=== PATIENT | female | born 1950 | race Caucasian/White ===

== ENCOUNTER → 2021-02-26 | Outpatient (CLI) | payer MEDICARE, OTHER ==
[2021-02-26 08:27] VITALS: BP 146/90; RESP 18; TEMP 97.8
--- NOTE | 2021-02-26 08:45 | P.PAINCN ---
History of Present Illness - Reason for Consult Consult date: 02/26/21 - History of Present Illness Since 70 years old female with a chronic history of severe neck pain and left shoulder pain with rotation to the left upper extremity associated with numbness and tingling sensation, thought that after she fell in November 2020, pain is constant and increased with any upper extremity movement, denies any weakness, she denies any fever or night sweats she denies any change in bowel movement or urination, she tried physical therapy without any benefit, he continued to do daily home exercise, she tried Tylenol and ibuprofen without any significant improvement of her pain Past Medical History Past Medical History: Diabetes Mellitus, Hyperlipidemia, Thyroid Disorder History of Any Multi-Drug Resistant Organisms: None Reported Past Surgical History: Joint Replacement, Orthopedic Surgery Additional Past Surgical History / Comment(s): Bilateral carpal tunnel surgery, bilateral knee replacements, right rotator cuff repair. "Recent fall, anel left shoulder, now has constant tingling in left arm". " said it's orginating from neck and back." Past Anesthesia/Blood Transfusion Reactions: No Reported Reaction Smoking Status: Former smoker - Past Family History Mother Family Medical History: Cancer Medications and Allergies Home Medications Medication Instructions Recorded Confirmed Type Calcium/Magnesium/Zinc 1 each PO DAILY 02/24/21 02/24/21 History [Ewbfeyv-Qqmjzsktn-Dicu Tablet] Cholecalciferol (Vitamin D3) 250 mcg PO DAILY 02/24/21 02/24/21 History [Vitamin D3 (125 MCG = 5,000 IU)] Cyclobenzaprine [Flexeril] 10 mg PO HS 02/24/21 02/24/21 History Levothyroxine Sodium 112 mcg PO DAILY 02/24/21 02/24/21 History Losartan Potassium 50 mg PO DAILY 02/24/21 02/24/21 History Milk Thistle 150 mg PO DAILY 02/24/21 02/24/21 History Repaglinide 0.5 mg PO DAILY 02/24/21 02/24/21 History Rosuvastatin Calcium 20 mg PO DAILY 02/24/21 02/24/21 History Vitamin E(Unknown Dose) 1 tab PO DAILY 02/24/21 02/24/21 History metFORMIN HCL [Glucophage] 500 mg PO QAM 02/24/21 02/24/21 History Allergies Allergy/AdvReac Type Severity Reaction Status Date / Time No Known Allergies Allergy Verified 02/24/21 13:36 Physical Exam Vitals: Vital Signs Temp Resp BP Pulse Ox 02/26/21 08:21 97.8 F 18 146/90 97 Physical Examinations : -Constitutiona : Cooperative , not in acute distress . -HEENT : nech : supple , no Lymphadenopathy , normal thyroid size . : eyes : no ptosis , no icterus, no photophobia . - neurologic : Cranial nerve II to XII intact , no focal neurological deffecit . -psychatric : alert , oriented X 3 , appropriate affect , intact judgment and insight . -Lymphatic : no Lymphadenopathy . - musculoskeltal : Cervical Spine motor stregnth in the deltoid and biceps, normal right side , normal Left side motor stregnth biceps and the wrist extensors normal right side ,normal left side . motor stregnth in the triceps muscle . normal Right side , normal Left side deep tendon reflexes normal at the biceps , normal at Brachioradialis , normal at triceps. cervical facet loading test: Positive left side Spurling test= positive left. Neck distraction test= positive left. Ana Laura sign= positive left . Abduction and lateral rotation of the left shoulder associated with pain Lumber spine moter stegnth lower extremities ,thigh and legs 5/5 Right side , 5/5 Left side Results Comments: MRI of the cervical spine= C2 3 facet hypertrophy at C3 4 left foraminal stenosis and facet hypertrophy at C4 5 Central disc complex and bilateral foraminal stenosis and facet joint hypertrophy at C5 6 bilateral foraminal stenosis Assessment and Plan Plan: Assessment and plan=1-cervical radiculopathy. 2-cervical foraminal stenosis. 3-cervical spondylosis with cervical facet arthropathy. 4-left shoulder pain. She could benefit from cervical epidural steroid injection at C7-T1 (left paramedian approach ). Time with Patient: Greater than 30 PQRS Measure Charge Sheet Measure #130: Documentation of Current Meds in Medical Chart: Patient's medications documented in chart Measure #226: Tobacco Use: Screen & Cessation Intervention: Pt not a tobacco user Measure #111: Pneumonia Vaccination: Pneumococcal vaccine NOT administered or previously given Measure #47: Advance Care Plan: Advance care planning discussed & documented, pt chose/unable to give Measure #412: Opioid Treatment Agreement: No documentation of signed opioid treatment agreement Measure #408: Opioid Therapy Follow-up Evaluation: Patient had NO f/u eval minimum every 3 months during opioid therapy Measure #317: Preventitive Care & Scrn High Bld Press & F/U: Pre-hypertensive or hypertensive BP documented, pt will f/u with PCP Measure #128: Body Mass Index (BMI) Screening & Follow-up: BMI documented ABOVE normal parameters - f/u documented Measure #131: Pain Assessment & Follow-up: Pain positive & plan documented, Follow-up scheduled Measure #431: Unhealthy Alcohol Use Preventative Care & Scrn: Patient not identified as an unhealthy alcohol user PQRS Narrative: Blood Pressure 146/90 Pain Intensity [Left Arm] 5 Scale Used Numeric (1 - 10) Hx Alcohol Use (MH) No Home Medications: Ambulatory Orders Calcium/Magnesium/Zinc [Cikbdck-Qkddgqwca-Waaa Tablet] 1 each PO DAILY 02/24/21 Cholecalciferol (Vitamin D3) [Vitamin D3 (125 MCG = 5,000 IU)] 250 mcg PO DAILY 02/24/21 Cyclobenzaprine [Flexeril] 10 mg PO HS 02/24/21 Levothyroxine Sodium 112 mcg PO DAILY 02/24/21 Losartan Potassium 50 mg PO DAILY 02/24/21 Milk Thistle 150 mg PO DAILY 02/24/21 Repaglinide 0.5 mg PO DAILY 02/24/21 Rosuvastatin Calcium 20 mg PO DAILY 02/24/21 Vitamin E(Unknown Dose) 1 tab PO DAILY 02/24/21 metFORMIN HCL [Glucophage] 500 mg PO QAM 02/24/21
== END | disposition home or self-care (01) ==
LOC: PNWHC3 08:10
PROVIDERS: ATTEND Specialist
DX: M48.02 Spinal stenosis, cervical region (principal); M47.22 Other spondylosis with radiculopathy, cervical region; M46.92 Unspecified inflammatory spondylopathy, cervical region; M50.30 Other cervical disc degeneration, unspecified cervical region; M25.512 Pain in left shoulder
CPT/HCPCS: 99202

== ENCOUNTER 2021-04-03 06:57 | Day surgery (SDC) | payer MEDICARE, OTHER ==
[2021-04-02 08:49] VITALS: BMI 46.7
[~2021-04-03 06:57] MED LIST: LACTATED RINGERS 1,000 ML IV SCH
[2021-04-03 07:27] VITALS: TEMP 97.6
[2021-04-03 07:35] LABS: Glucose,Whole Blood 116 mg/dL (75-99)
[2021-04-03] MEDS ORDERED: LIDOCAINE 1% (10MG/ML) FOR IV START INTRADERMA ONE (07:35)
[2021-04-03] MEDS ORDERED: MIDAZOLAM 2 MG/2 ML VIAL ONE (08:15)
[2021-04-03] MEDS ORDERED: fentaNYL (PF) 50 MCG/ML 2 ML AMP ONE (08:15)
[2021-04-03] MEDS ORDERED: DEXAMETHASONE SOD PHOSPHATE 10 MG/ML 1 ML VIAL ONE (08:15)
[2021-04-03] MEDS ORDERED: IOPAMIDOL M200 10 ML VIAL ONE (08:15)
--- NOTE | 2021-04-03 08:29 | P.PCN ---
Date of Procedure: 04/03/21 Surgeon: Manish Erwin Pathology: none sent Condition: stable Disposition: PACU Description of Procedure: PROCEDURE 1. Cervical epidural steroid injection under fluoroscopic guidance, C7-T1 left paramedian approach. 2. Cervical epidurogram. : PREOPERATIVE DIAGNOSIS: Cervical radiculopathy, cervical spondylosis without myelopathy POSTOPERATIVE DIAGNOSIS: : Same as above ANESTHESIA: Local anesthesia with 1% lidocaine and IV moderate conscious sedation with Versed and Fentanyl . EBL 0 PROCEDURE INDICATION: The patient with neck pain and radiculopathy unresponsive to conservative treatment consents for procedure. PROCEDURE DESCRIPTION / TECHNIQUE: The patient was seen and identified in the preoperative area. Risks, benefits, complications, including but not limited to infections ,bleeding , allergic reactions to the medications ,and not complete pain relief, and alternatives were discussed with the patient, the patient agreed to proceed with the procedure and signed the consent. Patient was taken to the OR and time out was completed. The patient was placed in the prone position on the procedure table. A pillow was placed under the patients chest to increase the flexion of the cervical spine . The cervical area was prepped and draped in the usual sterile fashion. Vital signs were closely monitored during the procedure. Conscious sedation was used during the procedure to decrease patients anxiety. Using anterior-posterior fluoroscopy, the C7-T1 interlaminar space was identified and the skin over this site was marked and then infiltrated with 1% lidocaine subcutaneously. Subsequently, a 20-gauge 3-1/2-inch Tuohy epidural needle was inserted and advanced toward the epidural space by means of loss of resistance to air technique and guided by AP and lateral fluoroscopy. The needle tip contacted the lamina of T1 vertebra first, then it was walked off bone and into the epidural space using the loss of to air and fluoroscopic guidance to identify the epidural space. The correct needle position in the epidural space was verified with the injection of 1 mL of the water soluble contrast dye Isovue and observing an excellent epidurogram with the epidural spread of the dye, after negative aspiration for blood and CSF and in the absence of paresthesias. Again after negative aspiration, a 2 ml mixture containing 10 mg of Decadron and 1 ml of preservative free Normal Saline solution was injected and a washout of epidurogram was seen. Needle was withdrawn intact, skin was cleansed, and bandages were applied. A copy of the needle placement picture was saved to the fluoroscopy machine.
[2021-04-03] MEDS ORDERED: IV FLUID CONTINUATION 600 ML IV ONE (08:38)
[2021-04-03 09:09] VITALS: BP 125/76; PULSE 78; RESP 20
--- NOTE | 2021-04-03 10:00 | FL ---
EXAMINATION TYPE: FL guided pain mgmt statistic DATE OF EXAM: 04/03/2021 CLINICAL HISTORY: Neck pain. TECHNIQUE: Fluoroscopy. COMPARISON: None. FINDINGS: Fluoroscopic guidance was provided during pain relief procedure performed by Dr. Erwin . A total of 5 seconds of fluoroscopic time was utilized during the procedure and 1 spot images are a cquired. Single image acquired shows needle localization at the cervical thoracic junction. IMPRESSION: As Above.
== END 2021-04-03 09:10 | disposition home or self-care (01) ==
LOC: ORPAIN 06:57
PROVIDERS: ATTEND Anesthesiology
DX: M47.22 Other spondylosis with radiculopathy, cervical region (principal); E11.9 Type 2 diabetes mellitus without complications; E66.9 Obesity, unspecified; Z68.42 Body mass index [BMI] 45.0-49.9, adult
CPT/HCPCS: 62321; J2250; J1100; J3010; Q9966; 99152

== ENCOUNTER → 2021-05-28 | Outpatient (CLI) | payer MEDICARE, OTHER ==
[2021-05-28 10:56] LABS: Basophils % (A) 1 %; Eosinophils # (A) 0.1 k/uL (0-0.7); Eosinophils % (A) 2 %; HCT 38.3 % (34.0-46.0); HGB 13.3 gm/dL (11.4-16.0); Lymphocytes # (A) 2.1 k/uL (1.0-4.8); Lymphocytes % (A) 42 %; MCH 33.1 pg (25.0-35.0); MCHC 34.8 g/dL (31.0-37.0); Mean Platelet Volume 8.6; Monocytes # (A) 0.4 k/uL (0-1.0); Monocytes % (A) 7 %; Neutrophils # (A) 2.3 k/uL (1.3-7.7); Neutrophils % (A) 46 %; Platelet Count 127 k/uL (150-450); RBC 4.03 m/uL (3.80-5.40); RDW 12.9 % (11.5-15.5)
[2021-05-28 11:11] LABS: Partial Thromboplastin Time 23.3 sec (22.0-30.0); Prothrombin Time 10.7 sec (9.0-12.0)
[2021-05-28 11:16] LABS: Calcium 9.4 mg/dL (8.4-10.2); Potassium 4.2 mmol/L (3.5-5.1)
[2021-05-28 11:18] LABS: Appearance,Urine Clear (Clear); Bilirubin,Urine Negative (Negative); Blood,Urine Negative (Negative); Color,Urine Yellow; Glucose,Urine (UA) Negative (Negative); Ketones,Urine Negative (Negative); Leukocyte Esterase,Urine Moderate (Negative); Nitrite,Urine Negative (Negative); PH, Urine 5.5 (5.0-8.0); Protein,Urine Negative (Negative); RBC,Urine <1 /hpf (0-5); Specific Gravity,Urine 1.016 (1.001-1.035); Squamous Epithelial Cell,Urine <1 /hpf (0-4); Urobilinogen,Urine <2.0 mg/dL (<2.0); WBC,Urine 3 /hpf (0-5)
== END | disposition home or self-care (01) ==
LOC: LABPAT 09:15
PROVIDERS: ATTEND Orthopaedic Surgery Orthopaedic Surgery of the Spine
DX: Z01.812 Encounter for preprocedural laboratory examination (principal); M48.02 Spinal stenosis, cervical region
CPT/HCPCS: 36415; 80048; 81001; 85025; 85610; 85730

== ENCOUNTER → 2021-06-03 | Outpatient (CLI) | payer MEDICARE, OTHER ==
[2021-06-03 10:27] LABS: Appearance,Urine Clear (Clear); Bacteria,Urine Rare /hpf; Bilirubin,Urine Negative (Negative); Blood,Urine Negative (Negative); Color,Urine Yellow; Glucose,Urine (UA) Negative (Negative); Hyaline Casts,Urine 4 /lpf (0-2); Ketones,Urine Negative (Negative); Leukocyte Esterase,Urine Moderate (Negative); Mucus,Urine Rare /hpf; Nitrite,Urine Negative (Negative); PH, Urine 5.5 (5.0-8.0); Protein,Urine Negative (Negative); RBC,Urine 1 /hpf (0-5); Specific Gravity,Urine 1.014 (1.001-1.035); Squamous Epithelial Cell,Urine 1 /hpf (0-4); Urobilinogen,Urine <2.0 mg/dL (<2.0); WBC,Urine 6 /hpf (0-5)
== END | disposition home or self-care (01) ==
LOC: LABPAT 08:34
PROVIDERS: ATTEND Orthopaedic Surgery Orthopaedic Surgery of the Spine
DX: Z01.812 Encounter for preprocedural laboratory examination (principal); M48.02 Spinal stenosis, cervical region
CPT/HCPCS: 81001

== ENCOUNTER 2021-06-04 06:09 | Day surgery (SDC) | payer MEDICARE, OTHER ==
[2021-06-03 09:41] VITALS: BMI 48.7
[~2021-06-04 06:09] MED LIST changes: +DEXAMETHASONE SOD PHOSPHATE 4 MG/ML 1 ML VIAL IV ONE; +LIDOCAINE 1% (10MG/ML) FOR IV START INTRADERMA PRN; +MIDAZOLAM 2 MG/2 ML VIAL IV PRN; +ONDANSETRON 4 MG/2 ML VIAL IVP ONE; +ceFAZolin 3 GM in SODIUM CHLORIDE 0.9% 100 ML IVPB PRN
[2021-06-04 07:19] LABS: Glucose,Whole Blood 132 mg/dL (75-99)
[2021-06-04] MEDS ORDERED: SUCCINYLCHOLINE CHLORIDE VIAL 200 MG/10 ML VIAL IV ONE (07:23)
[2021-06-04] MEDS ORDERED: HYDROmorphone (PF) 1 MG/ML ONE (07:23)
[2021-06-04] MEDS ORDERED: LIDOCAINE 1% INJ 10MG/ML (20 ML MDV) ONE (07:23)
[2021-06-04] MEDS ORDERED: PHENYLEPHRINE-0.9% NACL SYG 1,000 MCG/10 ML SYRINGE ONE (07:23)
[2021-06-04] MEDS ORDERED: PROPOFOL 10 MG/ML 20 ML VIAL IV ONE (07:23)
[2021-06-04] MEDS ORDERED: ALBUTEROL HFA INHALER INHALATION ONE (07:23)
[2021-06-04] MEDS ORDERED: MIDAZOLAM 2 MG/2 ML VIAL ONE (07:23)
[2021-06-04] MEDS ORDERED: .fentaNYL (PF) 50 MCG/ML 2 ML AMP ONE (07:23)
[2021-06-04] MEDS ORDERED: ceFAZolin 1,000 MG in SODIUM CHLORIDE 0.9% 1,000 ML IRRIGATION ONE (07:32)
[2021-06-04] MEDS ORDERED: BUPIVACAIN-EPI 0.25%-1:200,000 30 ML VIAL SQ ONE ×3 (07:57→08:03)
[2021-06-04] MEDS ORDERED: GELATIN SPONGE,ABSORB (LARGE) 1 EACH SPONGE MISCELLANE ONE (07:57)
[2021-06-04] MEDS ORDERED: THROMBIN (BOVINE) 5,000 UNIT VIAL MISCELLANE ONE (07:58)
[2021-06-04] MEDS ORDERED: LACTATED RINGERS 1,000 ML IV ONE (09:00)
[2021-06-04] MEDS ORDERED: ONDANSETRON 4 MG/2 ML VIAL IVP PRN (09:44)
[2021-06-04] MEDS ORDERED: BENZOCAINE/MENTHOL LOZENG 1 EACH LOZENGE MUCOUS MEM PRN (09:44)
[2021-06-04] MEDS ORDERED: MAGNESIUM HYDROXIDE 2,400 MG/10 ML CUP PO PRN (09:44)
[2021-06-04] MEDS ORDERED: HYDROmorphone 0.5 MG/0.5 ML SYRINGE IVP PRN (09:44)
[2021-06-04] MEDS ORDERED: CYCLOBENZAPRINE 10 MG TAB PO PRN (09:44)
[2021-06-04] MEDS ORDERED: ACETAMINOPHEN TAB 325 MG TAB PO PRN (09:44)
[2021-06-04] MEDS ORDERED: HYDROcodone/APAP 5-325MG 1 EACH TAB PO PRN (09:44)
[2021-06-04] MEDS ORDERED: SODIUM CHLORIDE 0.9% 1,000 ML IV SCH (09:45)
--- NOTE | 2021-06-04 09:52 | P.OP ---
Date of Procedure: 06/04/21 Preoperative Diagnosis: Herniated nucleus pulposis C5 6 C6 7, degenerative disc disease C5 6 C6 7, cervical stenosis C5 6 C6 7, neck pain, upper extremity radiculopathy, upper extremity weakness Postoperative Diagnosis: Same Anesthesia: GETA Pathology: none sent Condition: stable Disposition: PACU Description of Procedure: BRIEF OPERATIVE NOTE Preoperative Diagnosis:Herniated nucleus pulposis C5 6 C6 7, degenerative disc disease C5 6 C6 7, cervical stenosis C5 6 C6 7, neck pain, upper extremity radiculopathy, upper extremity weakness Postoperative Diagnosis:Herniated nucleus pulposis C5 6 C6 7, degenerative disc disease C5 6 C6 7, cervical stenosis C5 6 C6 7, neck pain, upper extremity radiculopathy, upper extremity weakness Procedure: Anterior cervical decompression with discectomy and fusion C5 6 C6 7 Placement of interbody graft C5 6 C6 7 Application of anterior cervical plate C5 6 7 Surgeon: Dr. Garcia Telephone Operators Supervisor: Rachid Shafer is present throughout the entire the case persistence during positioning, dissection, exposure, visualization, and all crucial elements of the case as well as closure. Anesthesia: General anesthesia per Dr. Oakes Estimated blood loss: Approximately 50 mL Complications: None apparent Components implanted: K2M Causey anterior cervical plate system with a 38 mm plate and 6 screws with Vikos interbody allograft bone graft and 1 mL of DBX bone putty Disposition: To recovery room in good stable condition. OPERATIVE INDICATIONS The patient has had long-standing issues in their neck and upper extremities. She is having significant worsening over the past several months. She was found have disc herniation at C5 6 C6 7 which correlated well with her neck and her upper extremity symptoms. She was having continued pain at her upper extremities despite conservative care and was having worsening of her symptoms. The patient has been through conservative treatment. We discussed various treatment options including surgery, and the patient wishes to proceed with surgery We discussed the risk, patient's alternatives and benefits of surgery including but not limited to, risk of bleeding risk of infection, risk of need for further surgery, risk of decreased, loss of motion, muscle function, malunion nonunion, hardware failure, nerve damage, paralysis, heart attack, and . OPERATIVE SUMMARY After discussing all the risks, patient alternatives and benefits at length, the patient elected to proceed with surgical intervention, signed informed consent, and presented for their procedure. The patient was seen and examined in the preoperative holding area and the surgical site was marked. The patient was given antibiotics and brought to the operating room. The patient was positioned on the operating room table in a supine position being careful to pad any bony prominences and pressure points. The patient was sedated and intubated by anesthesia in standard fashion. Once the airway and C- spine were stabilized the patient's arms were padded and tucked at her side, with her shoulders gently taped. The head was placed in a donut pad with the neck in good neutral alignment and position. We were careful to maintain the patient's cervical spine and good neutral alignment and position throughout. The patient was prepped and draped in a normal standard fashion. An appropriate timeout and keystone protocol performed. We were able to proceed with the surgery. The local wound area was infiltrated with local anesthetic. An incision was made transversely approximately 2-1/2 cm over the appropriate levels at C6. Dissection was taken down subcutaneously to the level of the platysma which was split in line with its fibers. Dissection was taken with a carotid approach, with the trachea and esophagus medial and the carotid sheath laterally. We dissected down to the anterior surface of the vertebral bodies. The patient is obese and there was extra time during the dissection and the surgery due to her body habitus. Intraoperative x-ray was taken which showed a marker at the C4 5 level and I was able to definitively dissect down caudal to this to C5 6 and C6 7. With the appropriate level positively confirmed, we were able to proceed with discectomy at the appropriate levels, first at C6 7 and then at C5 6. All of the operative levels were exposed appropriately. The patient had all their twitches back, and there was no evidence of recurrent laryngeal issue. The wound was copiously irrigated and suctioned dry as had been done periodically throughout the case. The anterior osteophytes were removed. At the appropriate level/levels, versus C6 7 and then at C5 6 I established an annulotomy with an 11 blade scalpel. A discectomy was performed with a combination of pituitary rongeurs, curettes, a high-speed bur, and Kerrison rongeurs. The posterior longitudinal ligament was taken down as were any posterior osteophytes. This gave good central and bilateral foraminal decompression. There is no evidence of any dural tear or leak. There was severe disc degeneration at each of the levels with severe disc height loss. The endplates were prepared with a high-speed bur. With the endplates in good parallel position, I was able to size for the appropriate size interbody graft. The wound was irrigated and suctioned dry the graft was prepared and malleted into position. It had good alignment and position with the anterior surface flush with the anterior surface of the vertebral bodies. This was done similarly the appropriate levels first at C6 7 and then at C5 6. With the grafts intact, I was able to measure and contour and appropriate sized plate. The plate was positioned at the midline over the appropriate levels at C5 6 and 7. Screw holes were established with a hand drill and drill guide. Screws were placed in good alignment and position with excellent bony purchase. They were seated under the locking device. The construct was checked and found to be stable. Intraoperative x-ray was taken which showed good alignment and position of the implants at the appropriate levels. There was no evidence of any dural tear or leak. Good hemostasis was maintained. The wound was copiously irrigated and suctioned dry as had been done periodically throughout the case. The platysma was closed with absorbable suture. The subcutaneous tissue was closed. The subcuticular tissue was closed with absorbable suture. The wound was cleaned and dried and dressed appropriately. A soft cervical collar was placed appropriately. The patient was woken up by anesthesia, extubated, transferred back gently to their hospital bed and brought to the recovery room in good stable condition. The patient will be admitted to the hospital for appropriate postoperative care, medical management and monitoring. We will continue to follow them closely about the postoperative course.
--- NOTE | 2021-06-04 10:05 | XR ---
EXAMINATION TYPE: XR cervical spine 1V DATE OF EXAM: 06/04/2021 COMPARISON: 06/04/2021 and earlier exam HISTORY: Cervical fusion TECHNIQUE: Crosstable lateral cervical view FINDINGS: Endotracheal tube is present. There is anterior cervical fusion at C5. This extends lower a lthough body habitus prevents evaluation of this region. IMPRESSION: 1. Status post cervical fusion. Exam is limited
--- NOTE | 2021-06-04 10:06 | XR ---
EXAMINATION TYPE: XR cervical spine 1V DATE OF EXAM: 06/04/2021 COMPARISON: None HISTORY: Needle placement TECHNIQUE: Lateral cervical spine FINDINGS: There is a needle directed to the C4-C5 disc level. Endotracheal tube is evident. IMPRESSION: 1. Metallic device directed towards the C4-5 disc level.
[2021-06-04 10:08] VITALS: TEMP 97.3
[2021-06-04] MEDS: HYDROmorphone 0.5 MG/0.5 ML SYRINGE IVP PRN ×2 (10:25→10:41)
[2021-06-04] MEDS ORDERED: HYDROcodone/APAP 5-325MG 1 EACH TAB PO ONE (11:41)
[2021-06-04 12:27] VITALS: PULSE 99
[2021-06-04 13:00] VITALS: BP 143/91; RESP 16
[2021-06-04] MEDS ORDERED: ceFAZolin 3 GM in SODIUM CHLORIDE 0.9% 100 ML IVPB SCH (16:00)
[2021-06-04] MEDS ORDERED: CYCLOBENZAPRINE 10 MG TAB PO SCH (21:00)
[2021-06-04] MEDS ORDERED: NITROFURANTOIN MONOHYD/M-CRYST 100 MG CAP PO SCH (21:00)
[2021-06-05] MEDS ORDERED: LOSARTAN 50 MG TAB PO SCH (09:00)
[2021-06-05] MEDS ORDERED: SENNOSIDES-DOCUSATE SODIUM 1 EACH TAB PO SCH (09:00)
[2021-06-05] MEDS ORDERED: LEVOTHYROXINE 112 MCG TAB PO SCH (09:00)
[2021-06-05] MEDS ORDERED: REPAGLINIDE 0.5 MG PO SCH (09:00)
[2021-06-05] MEDS ORDERED: metFORMIN 500 MG TAB PO SCH (09:00)
[2021-06-05] MEDS ORDERED: NON FORMULARY DRUG (Cholecalciferol (Vitamin D3) [Vitamin D3 (125 Mcg = 5,000 Iu)] 125 MCG PO SCH (09:00)
[2021-06-05] MEDS ORDERED: NON FORMULARY DRUG (Calcium/Magnesium/Zinc [Calcium-Magnesium-Zinc Tablet] 1 EACH Tablet) PO SCH (09:00)
[2021-06-05] MEDS ORDERED: NON FORMULARY DRUG (Rosuvastatin Calcium [Rosuvastatin Calcium] 20 MG Tablet) PO SCH (09:00)
== END 2021-06-04 13:24 | disposition home or self-care (01) ==
LOC: OR 06:09
PROVIDERS: ATTEND Orthopaedic Surgery Orthopaedic Surgery of the Spine
DX: M50.122 Cervical disc disorder at C5-C6 level with radiculopathy (principal); E03.9 Hypothyroidism, unspecified; E78.5 Hyperlipidemia, unspecified; E11.9 Type 2 diabetes mellitus without complications; M48.02 Spinal stenosis, cervical region; M25.78 Osteophyte, vertebrae; M50.322 Other cervical disc degeneration at C5-C6 level; M50.323 Other cervical disc degeneration at C6-C7 level; M50.320 Other cervical disc degeneration, mid-cervical region, unspecified level; Z79.899 Other long term (current) drug therapy; Z79.84 Long term (current) use of oral hypoglycemic drugs
CPT/HCPCS: 87635; 72020; 22551; 22552 ×2; C1762 ×2; C1713; C1776; J2250; J0330; J1100; J0690 ×2; J2405; J2001; J3010; J1170 ×2; J2370; J2704; 86850; 86900; 86901

== ENCOUNTER 2022-01-07 06:56 | Day surgery (SDC) | payer MEDICARE, OTHER ==
[2022-01-02 16:02] VITALS: BMI 40.3
[~2022-01-07 06:56] MED LIST changes: -DEXAMETHASONE SOD PHOSPHATE 4 MG/ML 1 ML VIAL IV ONE; -LIDOCAINE 1% (10MG/ML) FOR IV START INTRADERMA PRN; -MIDAZOLAM 2 MG/2 ML VIAL IV PRN; -ONDANSETRON 4 MG/2 ML VIAL IVP ONE; -ceFAZolin 3 GM in SODIUM CHLORIDE 0.9% 100 ML IVPB PRN
[2022-01-07 07:33] VITALS: TEMP 96.7
[2022-01-07 07:35] LABS: Glucose,Whole Blood 126 mg/dL (70-110)
[2022-01-07] MEDS ORDERED: MIDAZOLAM 2 MG/2 ML VIAL ONE (07:35)
[2022-01-07] MEDS ORDERED: PROPOFOL 10 MG/ML 20 ML VIAL IV ONE (07:35)
[2022-01-07] MEDS ORDERED: fentaNYL (PF) 50 MCG/ML 2 ML AMP ONE (07:35)
--- NOTE | 2022-01-07 07:35 | P.GSHP ---
History of Present Illness H&P Date: 01/07/22 CHIEF COMPLAINT: Colon screen HISTORY OF PRESENT ILLNESS: The patient is a 71-year-old female who presents for colon screen. Lower endoscopy was offered for further evaluation and management. PAST MEDICAL HISTORY: Please see list. PAST SURGICAL HISTORY: Please see list. MEDICATIONS: Please see list. ALLERGIES: Please see list. SOCIAL HISTORY: No illicit drug use FAMILY HISTORY: No reports of Crohn disease or ulcerative colitis. REVIEW OF ORGAN SYSTEMS: CONSTITUTIONAL: No reports of fevers or chills. PHYSICAL EXAM: VITAL SIGNS: Stable GENERAL: Well-developed pleasant in no acute distress. HEENT: No scleral icterus. Extraocular movements grossly intact. Moist buccal mucosa. NECK: Supple without lymphadenopathy. CHEST: Unlabored respirations. Equal bilateral excursions. CARDIOVASCULAR: Regular rate and rhythm. Distal 2+ pulses. ABDOMEN: Soft, nontender, nondistended. MUSCULOSKELETAL: No clubbing, cyanosis, or edema. ASSESSMENT: 1. Colon screen. PLAN: 1. Recommend proceeding with a lower endoscopy Past Medical History Past Medical History: Diabetes Mellitus, Hyperlipidemia, Hypertension, Thyroid Disorder History of Any Multi-Drug Resistant Organisms: None Reported Past Surgical History: Joint Replacement, Orthopedic Surgery Additional Past Surgical History / Comment(s): Bilateral carpal tunnel surgery, bilateral knee replacements, right rotator cuff repair. "Recent fall, anel left shoulder, now has constant tingling in left arm". " said it's orginating from neck and back." Past Anesthesia/Blood Transfusion Reactions: No Reported Reaction Past Psychological History: No Psychological Hx Reported Smoking Status: Former smoker Past Alcohol Use History: None Reported Additional Past Alcohol Use History / Comment(s): Smoked in her teens. Past Drug Use History: None Reported - Past Family History Mother Family Medical History: Cancer Medications and Allergies Home Medications Medication Instructions Recorded Confirmed Type Calcium/Magnesium/Zinc 1 each PO DAILY 02/24/21 01/07/22 History [Babgxto-Hmepnhqkg-Anbp Tablet] Cholecalciferol (Vitamin D3) 250 mcg PO DAILY 02/24/21 01/07/22 History [Vitamin D3 (125 MCG = 5,000 IU)] Levothyroxine Sodium 168 mcg PO QAM 02/24/21 01/07/22 History Losartan Potassium 50 mg PO QAM 02/24/21 01/07/22 History Milk Thistle 150 mg PO DAILY 02/24/21 01/07/22 History Rosuvastatin Calcium 20 mg PO DAILY 02/24/21 01/07/22 History Vitamin E(Unknown Dose) 1 tab PO DAILY 02/24/21 01/07/22 History metFORMIN HCL [Glucophage] 500 mg PO QAM 02/24/21 01/07/22 History Allergies Allergy/AdvReac Type Severity Reaction Status Date / Time No Known Allergies Allergy Verified 01/07/22 07:14 Surgical - Exam Vital Signs Temp Pulse Resp BP Pulse Ox 96.7 F L 78 15 137/83 95 01/07/22 07:23 01/07/22 07:23 01/07/22 07:23 01/07/22 07:23 01/07/22 07:23
--- NOTE | 2022-01-07 07:53 | P.PCN ---
Date of Procedure: 01/07/22 Description of Procedure: PREOPERATIVE DIAGNOSIS: History of colon polyp Colonoscopy screening. POSTOPERATIVE DIAGNOSIS: Colonoscopy screening. Diverticulosis, scattered. OPERATION: Colonoscopy to the cecum, ileocecal valve and appendiceal orifice. SURGEON: Anneliese Ontiveros MD. ANESTHESIA: MAC. INDICATIONS: The patient is a 71-year-old female who presents for colonoscopy screening. Benefits and risks were described and informed consent was obtained. DESCRIPTION OF PROCEDURE: The patient had undergone Sutab prep. The patient had been brought into the operating room and laid in the left lateral decubitus position. After adequate intravenous sedation, the rectum was examined with 2% lidocaine jelly. No external hemorrhoids were encountered. The rectal tone was within normal limits. No lesions were palpated in the rectal vault. An Olympus colonoscope was advanced until the cecum, ileocecal valve and appendiceal orifice were clearly viewed. The prep was excellent. Scattered diverticulosis was encountered. No colonic polyps were found. No evidence of focal colitis was found. Retroflexion of the scope demonstrated grade 1 internal hemorrhoids without active bleeding or inflammation. The colon was desufflated. The patient had tolerated the procedure well. Withdrawal time was over 6 minutes. FINDINGS: Aronchick preparation quality scale 1 (1-5) Internal hemorrhoids, grade 1 No external prolapsed hemorrhoids. No arteriovenous malformations. No adenomatous polyps. No focal colitis. Descending and sigmoid diverticulosis RECOMMENDATIONS: Lower endoscopy in 5 years, 2026 Plan - Discharge Summary Discharge Rx Participant: No New Discharge Prescriptions: No Action Vitamin E(Unknown Dose) 1 tab PO DAILY Milk Thistle 150 mg PO DAILY Levothyroxine Sodium 168 mcg PO QAM Cholecalciferol (Vitamin D3) [Vitamin D3 (125 MCG = 5,000 IU)] 250 mcg PO DAILY metFORMIN HCL [Glucophage] 500 mg PO QAM Rosuvastatin Calcium 20 mg PO DAILY Losartan Potassium 50 mg PO QAM Calcium/Magnesium/Zinc [Uhofxkt-Mfllkjdol-Cpkx Tablet] 1 each PO DAILY Discharge Medication List Calcium/Magnesium/Zinc [Rwgjdym-Uatlhdgny-Rumm Tablet] 1 each PO DAILY 02/24/21 [History] Cholecalciferol (Vitamin D3) [Vitamin D3 (125 MCG = 5,000 IU)] 250 mcg PO DAILY 02/24/21 [History] Levothyroxine Sodium 168 mcg PO QAM 02/24/21 [History] Losartan Potassium 50 mg PO QAM 02/24/21 [History] Milk Thistle 150 mg PO DAILY 02/24/21 [History] Rosuvastatin Calcium 20 mg PO DAILY 02/24/21 [History] Vitamin E(Unknown Dose) 1 tab PO DAILY 02/24/21 [History] metFORMIN HCL [Glucophage] 500 mg PO QAM 02/24/21 [History]
[2022-01-07 07:58] VITALS: RESP 16
[2022-01-07 08:12] VITALS: BP 106/70; PULSE 68
== END 2022-01-07 08:30 | disposition home or self-care (01) ==
LOC: ORWHC2ENDO 06:56
PROVIDERS: ATTEND Surgery Plastic and Reconstructive Surgery
DX: Z12.11 Encounter for screening for malignant neoplasm of colon (principal); K57.30 Diverticulosis of large intestine without perforation or abscess without bleeding; K64.0 First degree hemorrhoids; Z86.010 Personal history of colon polyps; E11.9 Type 2 diabetes mellitus without complications; E78.5 Hyperlipidemia, unspecified; I10 Essential (primary) hypertension; E07.9 Disorder of thyroid, unspecified; Z96.653 Presence of artificial knee joint, bilateral; Z98.890 Other specified postprocedural states; Z87.891 Personal history of nicotine dependence; Z80.9 Family history of malignant neoplasm, unspecified; Z79.84 Long term (current) use of oral hypoglycemic drugs; Z79.890 Hormone replacement therapy; Z79.899 Other long term (current) drug therapy
CPT/HCPCS: J2250; J3010; J2704; G0105

== ENCOUNTER → 2023-01-05 | Outpatient (CLI) | payer MEDICARE ==
--- NOTE | 2023-01-06 13:15 | MR ---
EXAMINATION TYPE: MR lumbar spine wo/w con DATE OF EXAM: 01/05/2023 10:32 PM COMPARISON: None. CLINICAL INDICATION: Female, 72 years old with history of M48.061; Low back pain on right side. TECHNIQUE: Multi planar, multi sequence imaging was performed utilizing: T1-weighted, T2-weighted, a nd turbo inversion recovery imaging of the lumbar spine. IV Contrast: 12 cc Gadavist. None. FINDINGS: Alignment: The lumbar vertebral bodies have preserved heights with grade 1 anterolisthesis of L3 on L 4. Cord: The conus medullaris and the distal spinal cord appear unremarkable with regards to their signa l intensity and morphology. Bones/Discs: Multilevel osteophyte formation with scattered Schmorl's nodes, disc space narrowing, Mo dic endplate changes. There is also facet joint arthropathy throughout the spine. Reactive enhancemen t around the right facet joint at L1/2 on the right. Series 801 image 10. T12-L1: No evidence of significant spinal canal stenosis or neural foraminal stenosis. L1-L2: Facet joint hypertrophy changes which impress upon the spinal cauda equina series 701 image 22 . Additionally there is a left foraminal disc protrusion at this level which moderately narrows the l eft neural foramen. The right neural foramen is also moderately narrowed. L2-L3: No evidence of significant spinal canal stenosis or neural foraminal stenosis. L3-L4: Disc uncovering from grade 1 anterolisthesis and facet joint arthropathy without significant s sandi canal stenosis and mild bilateral neural foraminal stenosis. L4-L5: No evidence of significant spinal canal stenosis or neural foraminal stenosis. L5-S1: The disc is rounded posterior morphology without significant spinal canal stenosis. Facet join t arthropathy with mild neural foraminal stenosis. No significant spinal canal or neural foraminal stenosis in the remainder of the visualized levels. Other findings: None. IMPRESSION: 1. Significant hypertrophy changes of the right facet joint at L1-L2 with impression upon the research nutritionist ior right lateral cauda equina is/distal inferior spinal cord. Additionally there is a left foraminal disc protrusion at this level which moderately narrows the left neural foramen. Enhancement around t he right facet joint suggestive of active/reactive enhancement. 2. Grade 1 anterolisthesis of L3 on L4.
== END | disposition home or self-care (01) ==
LOC: RADMRIMAIN 21:00
PROVIDERS: ATTEND Family Medicine
DX: M48.061 Spinal stenosis, lumbar region without neurogenic claudication (principal); M51.36 Other intervertebral disc degeneration, lumbar region; M43.16 Spondylolisthesis, lumbar region
CPT/HCPCS: 72158; A9585

== ENCOUNTER → 2024-11-09 | Outpatient (CLI) | payer MEDICARE ==
--- NOTE | 2024-11-09 09:43 | MM ---
Reason for Exam: Screening (asymptomatic). Patient History: Sister had breast cancer. Sister had breast cancer. Risk Values: Radha 5 year model risk: 7.6%. NCI Lifetime model risk: 18.6%. Tissue Density: There are scattered areas of fibroglandular density. Findings: Analyzed By CAD. There are a few small scattered benign-appearing round calcifications bilaterally redemonstrated. Benign-appearing bilateral axillary lymph nodes are seen. There is no suspicious group of microcalcifications or new suspicious mass in either breast. Overall Assessment: Benign, BI-RAD 2 Management: Screening Mammogram of both breasts in 1 year. . Patient should continue monthly self-breast exams. A clinical breast exam by your physician is recommended on an annual basis. This exam should not preclude additional follow-up of suspicious palpable abnormalities. Note on Radha scores and lifetime risk: 1. A Radha score greater than 3% is considered moderate risk. If this is the case, consider specialist referral to assess eligibility for a risk reducing agent. 2. If overall lifetime risk for the development of breast cancer is 20% or higher, the patient may qualify for future screening with alternating mammogram and breast MRI. [facility], , 11/09/2024 9:40 AM. Electronically signed and approved by: Johnnie Mccarthy M.D.
== END | disposition home or self-care (01) ==
LOC: RADMAMWWP 09:06
PROVIDERS: ATTEND Family Medicine
DX: Z12.31 Encounter for screening mammogram for malignant neoplasm of breast (principal); R92.323 Mammographic fibroglandular density, bilateral breasts; Z80.3 Family history of malignant neoplasm of breast
CPT/HCPCS: 77063; 77067

== ENCOUNTER → 2024-11-16 | Outpatient (CLI) | payer MEDICARE ==
--- NOTE | 2024-11-16 10:44 | MR ---
EXAMINATION TYPE: MR lumbar spine wo con DATE OF EXAM: 11/16/2024 COMPARISON: MR lumbar spine January 05, 2023 HISTORY: low back pain that radiates down left leg for over 3 months. TECHNIQUE: Multiplanar, multisequence imaging of the lumbar spine is performed without IV contrast. FINDINGS: Sagittal images of the lumbar spine show vertebral body heights to appear satisfactory. The re is grade 1 anterolisthesis L3 on L4 redemonstrated . Multilevel disc desiccation is redemonstrated . Mild disc space narrowing at L3-L4 level is redemonstrated. The conus medullaris remains normal in position and signal ending superior L2 level. The bone marrow signal intensity is within normal love its. Axial images at T12-L1 level redemonstrate tiny right paracentral disc protrusion minimally effacing anterior thecal sac. Mild/moderate facet arthropathy bilaterally is present. Axial images L1-L2 level redemonstrate mild to moderate facet degenerative changes bilaterally. Right -sided finding is improved from prior study. Improved left foraminal disc herniation also noted. Axial images at L2-L3 show mild to moderate facet arthropathy bilaterally. Axial images at L3-L4 level shows spondylolisthesis with moderate to advanced right greater than left facet arthropathy. There is broad-based posterior disc protrusion mildly effacing the anterior theca l sac. Bilateral neural foramina are patent. Findings more prominent from prior. Axial images at L4-L5 level show moderate to advanced facet arthropathy bilaterally. There is central disc protrusion minimally effacing the anterior thecal sac. Bilateral neural foramina are patent. Axial images at the L5-S1 level shows advanced facet arthropathy more prominent from prior. Spinal ca nal is preserved. Mild bilateral neural foraminal narrowing redemonstrated. Paraspinal muscle bulk is preserved. 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 [facility], , 11/16/2024 10:42 AM
== END | disposition home or self-care (01) ==
LOC: RADMRIMAIN 08:24
PROVIDERS: ATTEND Family Medicine
DX: M51.16 Intervertebral disc disorders with radiculopathy, lumbar region (principal); M47.26 Other spondylosis with radiculopathy, lumbar region
CPT/HCPCS: 72148